=== PATIENT | male | born 1945 | race Caucasian/White ===

== ENCOUNTER 2017-08-09 06:37 | Inpatient (IN) | payer MEDICARE, OTHER ==
[~2017-08-09] VITALS: Ht 195.6 cm; Wt 100.1 kg
[~2017-08-09 06:37] MED LIST: ANTIDEPRESSANT PO
[2017-08-09] MEDS ORDERED: ASPIRIN 81 MG TABLET CHEW PO ONE (07:30)
[2017-08-09 07:36] LABS: BASOPHILS # (AUTO) 0.01 x10^3/uL (0-0.1); BASOPHILS % (AUTO) 0 % (0-1); EOSINOPHILS % (AUTO) 2 % (1-7); LYMPHOCYTES % (AUTO) 13 % (22-44); MD NO; MEAN CORPUSCULAR HEMOGLOBIN 32.1 pg (27.5-34.5); MEAN CORPUSCULAR HGB CONC 33.6 g/dL (33.2-36.2); MEAN CORPUSCULAR VOLUME 95.4 fL (81-97); MONOCYTES # (AUTO) 0.37 x10^3/uL (0.2-0.8); MONOCYTES % (AUTO) 8 % (2-9); NEUTROPHILS # (AUTO) 3.36 x10^3/uL (1.8-6.8); NEUTROPHILS % (AUTO) 76 % (42-75); PLATELET COUNT 246 x10^3/uL (130-400); RED BLOOD COUNT 3.74 x10^6/uL (4.38-5.82); RED CELL DISTRIBUTION WIDTH 13.9 % (9.4-14.8)
[2017-08-09] MEDS ORDERED: ASPIRIN 81 MG TABLET CHEW ONE (07:46)
[2017-08-09 07:49] LABS: ALANINE AMINOTRANSFERASE 32 U/L (12-78); ALBUMIN 3.1 g/dL (3.4-5.0); ANION GAP 7 mmol/L (5-15); CALCIUM 7.9 mg/dL (8.5-10.1); CHLORIDE 108 mmol/L (98-107); CREATININE 0.91 mg/dL (0.7-1.3)
[2017-08-09 07:53] LABS: ALKALINE PHOSPHATASE 124 U/L (45-117); BILIRUBIN,TOTAL 0.4 mg/dL (0.2-1.0); TOTAL PROTEIN 6.7 g/dL (6.4-8.2)
[2017-08-09 07:56] LABS: TROPONIN I 0.133 ng/mL (0.000-0.045)
[2017-08-09] MEDS ORDERED: SODIUM CHLORIDE 0.9% 1,000 ML IV SCH (08:13)
[2017-08-09] MEDS ORDERED: hydrALAzine 20 MG/ML, 1ML IVPush PRN (08:30)
[2017-08-09] MEDS ORDERED: ACETAMINOPHEN 325 MG TABLET PO PRN ×2 (08:30→11:00)
[2017-08-09] MEDS ORDERED: ONDANSETRON 2MG/ML, 2ML IVPush PRN (08:30)
[2017-08-09] MEDS ORDERED: morphine SULFATE 10 MG/ML, 1ML IVPush PRN (08:30)
[2017-08-09] MEDS ORDERED: METOPROLOL TARTRATE 25 MG TABLET PO SCH (08:30)
[2017-08-09] MEDS ORDERED: Enoxaparin 1 mg/kg protocol SQ SCH (08:30)
[2017-08-09] MEDS ORDERED: MIRT15TA6 PO (08:53)
[2017-08-09] MEDS ORDERED: ASPI-515 PO (08:53)
[2017-08-09] MEDS ORDERED: ALPR0.25 PO (08:53)
[2017-08-09] MEDS ORDERED: ESCI20TA10 PO (08:53)
[2017-08-09] MEDS ORDERED: ZOLP-413 PO (08:53)
[2017-08-09] MEDS ORDERED: POLYETHYLENE GLYCOL 17 GM PACKET PO SCH (09:00)
[2017-08-09] MEDS ORDERED: OMNIPAQUE 350 MG/ML, 100ML BOTTLE ONE (10:17)
[2017-08-09] MEDS ORDERED: ENOXAPARIN 40 MG/0.4 ML SQ SCH (11:00)
[2017-08-09] MEDS ORDERED: ZOLPIDEM 5MG TABLET PO PRN (11:00)
[2017-08-09] MEDS ORDERED: FUROSEMIDE 40 MG/4 ML IV ONE (11:00)
[2017-08-09] MEDS ORDERED: DOCUSATE 100 MG CAPSULE PO PRN (11:00)
[2017-08-09 11:43] LABS: TROPONIN I 0.144 ng/mL (0.000-0.045)
[2017-08-09] MEDS ORDERED: FUROSEMIDE 40 MG/4 ML ONE (11:46)
[2017-08-09] MEDS: SODIUM CHLORIDE FLUSH 10ML SYR IVF SCH ×2 (12:01→22:10)
[2017-08-09] MEDS: ENOXAPARIN 100 MG/ML SQ SCH (13:07)
[2017-08-09 14:30] VITALS: BP 97/62
[2017-08-09 16:57] LABS: TROPONIN I 0.165 ng/mL (0.000-0.045)
[2017-08-09] MEDS ORDERED: SIMVASTATIN 40 MG TABLET PO SCH (21:00)
[2017-08-09 21:15] VITALS: BP 127/87
[2017-08-09] MEDS: CITALOPRAM 20 MG TABLET PO SCH (22:10)
[2017-08-10 02:00] VITALS: BP 149/107
[2017-08-10] MEDS: ENOXAPARIN 100 MG/ML SQ SCH ×2 (02:25→18:17)
[2017-08-10] MEDS ORDERED: ASPIRIN 81 MG TABLET EC PO SCH (06:00)
[2017-08-10 06:38] VITALS: BP 136/91
[2017-08-10 08:04] VITALS: BP 149/107
[2017-08-10] MEDS ORDERED: REGADENOSON 0.4 MG/5 ML SYRINGE ONE (08:21)
[2017-08-10] MEDS: SODIUM CHLORIDE FLUSH 10ML SYR IVF SCH ×2 (09:00→20:20)
[2017-08-10] MEDS: LISINOPRIL 5 MG TABLET PO SCH ×2 (11:17→20:21)
[2017-08-10 14:14] VITALS: BP 119/83
[2017-08-10 17:31] LABS: CHOL/HDL RATIO 3.4
[2017-08-10] MEDS: CARVEDILOL 12.5 MG TABLET PO SCH (18:15)
[2017-08-10 20:15] VITALS: BP 104/68
[2017-08-10] MEDS: CITALOPRAM 20 MG TABLET PO SCH (20:20)
[2017-08-10] MEDS: ATORVASTATIN 20 MG TABLET PO SCH (20:21)
[2017-08-11 01:45] VITALS: BP 107/74
[2017-08-11 05:11] VITALS: BP_SYST 109; BP_SYST 113; BP_DIAS 73; BP_DIAS 74
[2017-08-11] MEDS: ENOXAPARIN 100 MG/ML SQ SCH ×2 (05:17→17:53)
[2017-08-11] MEDS: CARVEDILOL 12.5 MG TABLET PO SCH (05:18)
[2017-08-11 07:26] VITALS: BP 105/72
[2017-08-11] MEDS: SODIUM CHLORIDE FLUSH 10ML SYR IVF SCH ×2 (09:04→21:00)
[2017-08-11] MEDS: LISINOPRIL 5 MG TABLET PO SCH (09:04)
[2017-08-11] MEDS: POTASSIUM CHLORIDE 20 MEQ TAB.ER.PRT PO SCH (10:34)
[2017-08-11] MEDS: FUROSEMIDE 20 MG TABLET PO SCH (10:34)
[2017-08-11] MEDS ORDERED: TICAGRELOR 90 MG TABLET ONE (12:25)
[2017-08-11] MEDS ORDERED: FENTANYL PF 100 MCG/2ML ONE (12:25)
[2017-08-11] MEDS ORDERED: MIDAZOLAM 1 MG/ML, 5ML ONE (12:25)
[2017-08-11] MEDS ORDERED: LIDOCAINE 2%, 2ML ONE (12:26)
[2017-08-11] MEDS ORDERED: VERAPAMIL 2.5 MG/ML, 2ML ONE (12:26)
[2017-08-11] MEDS ORDERED: BIVALIRUDIN 250 MG ONE (12:26)
[2017-08-11] MEDS ORDERED: HEPARIN 1,000 UNITS/ML, 10ML ONE (12:26)
[2017-08-11] MEDS: CARVEDILOL 6.25 MG TABLET PO SCH (17:52)
[2017-08-11 19:14] VITALS: BP 100/70
[2017-08-11] MEDS: CITALOPRAM 20 MG TABLET PO SCH (20:59)
[2017-08-11] MEDS: TICAGRELOR 90 MG TABLET PO SCH (20:59)
[2017-08-11] MEDS: ATORVASTATIN 20 MG TABLET PO SCH (20:59)
[2017-08-12 02:52] VITALS: BP_SYST 94; BP_SYST 97; BP_DIAS 63; BP_DIAS 64
[2017-08-12 04:30] VITALS: BP 113/72
[2017-08-12 05:14] LABS: ANION GAP 7 mmol/L (5-15); CHLORIDE 108 mmol/L (98-107)
[2017-08-12 05:15] LABS: CREATININE 0.83 mg/dL (0.7-1.3)
[2017-08-12 05:46] VITALS: BP 112/71
[2017-08-12] MEDS: CARVEDILOL 6.25 MG TABLET PO SCH ×2 (05:50→17:43)
[2017-08-12] MEDS: ENOXAPARIN 100 MG/ML SQ SCH ×2 (05:50→17:43)
[2017-08-12 07:32] VITALS: BP 112/71
[2017-08-12] MEDS: TICAGRELOR 90 MG TABLET PO SCH ×2 (09:53→20:25)
[2017-08-12] MEDS: POTASSIUM CHLORIDE 20 MEQ TAB.ER.PRT PO SCH (09:53)
[2017-08-12] MEDS: FUROSEMIDE 20 MG TABLET PO SCH (09:53)
[2017-08-12] MEDS: ASPIRIN 81 MG TABLET EC PO SCH (09:53)
[2017-08-12] MEDS: LISINOPRIL 5 MG TABLET PO SCH (09:54)
[2017-08-12] MEDS: SODIUM CHLORIDE FLUSH 10ML SYR IVF SCH ×2 (09:54→21:00)
[2017-08-12] MEDS ORDERED: FUROSEMIDE 40 MG/4 ML IV ONE (10:00)
[2017-08-12 14:30] VITALS: BP 107/59
[2017-08-12 19:13] VITALS: BP_SYST 95; BP_SYST 96; BP_DIAS 60; BP_DIAS 61
[2017-08-12] MEDS: ATORVASTATIN 20 MG TABLET PO SCH (20:25)
[2017-08-12] MEDS: CITALOPRAM 20 MG TABLET PO SCH (20:25)
[2017-08-13 01:13] VITALS: BP 121/73
[2017-08-13 05:34] LABS: BASOPHILS # (AUTO) 0.01 x10^3/uL (0-0.1); BASOPHILS % (AUTO) 0 % (0-1); EOSINOPHILS # (AUTO) 0.09 x10^3/uL (0-0.4); EOSINOPHILS % (AUTO) 2 % (1-7); LYMPHOCYTES # (AUTO) 0.73 x10^3/uL (1-3.4); LYMPHOCYTES % (AUTO) 14 % (22-44); MD NO; MEAN CORPUSCULAR HEMOGLOBIN 32.3 pg (27.5-34.5); MEAN CORPUSCULAR HGB CONC 33.6 g/dL (33.2-36.2); MEAN CORPUSCULAR VOLUME 96.1 fL (81-97); MEAN PLATELET VOLUME 7.5 fL (7.4-10.4); MONOCYTES % (AUTO) 10 % (2-9); NEUTROPHILS % (AUTO) 74 % (42-75); PLATELET COUNT 240 x10^3/uL (130-400); RED BLOOD COUNT 3.76 x10^6/uL (4.38-5.82); RED CELL DISTRIBUTION WIDTH 13.6 % (9.4-14.8)
[2017-08-13 05:50] LABS: CHLORIDE 107 mmol/L (98-107)
[2017-08-13] MEDS: ENOXAPARIN 100 MG/ML SQ SCH (06:00)
[2017-08-13 06:01] LABS: ALANINE AMINOTRANSFERASE 41 U/L (12-78); ALBUMIN 3.2 g/dL (3.4-5.0); ALKALINE PHOSPHATASE 122 U/L (45-117); ANION GAP 8 mmol/L (5-15); BILIRUBIN,TOTAL 0.7 mg/dL (0.2-1.0); CREATININE 0.91 mg/dL (0.7-1.3); TOTAL PROTEIN 6.9 g/dL (6.4-8.2)
[2017-08-13] MEDS: CARVEDILOL 6.25 MG TABLET PO SCH (06:17)
[2017-08-13 08:30] VITALS: BP_SYST 112; BP_SYST 156; BP_DIAS 70; BP_DIAS 83
[2017-08-13] MEDS: ASPIRIN 81 MG TABLET EC PO SCH (08:35)
[2017-08-13] MEDS: FUROSEMIDE 20 MG TABLET PO SCH (08:35)
[2017-08-13] MEDS: TICAGRELOR 90 MG TABLET PO SCH (08:35)
[2017-08-13] MEDS: POTASSIUM CHLORIDE 20 MEQ TAB.ER.PRT PO SCH (08:36)
[2017-08-13] MEDS: LISINOPRIL 5 MG TABLET PO SCH (08:36)
[2017-08-13] MEDS: SODIUM CHLORIDE FLUSH 10ML SYR IVF SCH (08:37)
[2017-08-13] MEDS ORDERED: FUROSEMIDE 40 MG/4 ML IV ONE (09:30)
[2017-08-13] MEDS ORDERED: CARV6.2512 PO (12:05)
[2017-08-13] MEDS ORDERED: LISI5TAB7 PO (12:05)
[2017-08-13] MEDS ORDERED: ATOR20TA9 PO (12:05)
[2017-08-13] MEDS ORDERED: FURO20TA3 PO (12:05)
[2017-08-13] MEDS ORDERED: POTA20TA6 PO (12:05)
[2017-08-13] MEDS ORDERED: TICA90TA PO (12:05)
== END 2017-08-13 13:50 | disposition home health service (06) | DRG 246 ==
LOC: ED 07:34 → EDIP 08:13 → 5SO 13:32 → DCLOUNGE 08-13 12:49
PROVIDERS: ADMIT Hospitalist; ATTEND Hospitalist
PROC: 027135Z Dilation of Coronary Artery, Two Arteries with Two Drug-eluting Intraluminal Devices, Percutaneous Approach (ICD-10-PCS; principal; 2017-08-11)
PROC: 4A023N7 Measurement of Cardiac Sampling and Pressure, Left Heart, Percutaneous Approach (ICD-10-PCS; 2017-08-11)
PROC: B2151ZZ Fluoroscopy of Left Heart using Low Osmolar Contrast (ICD-10-PCS; 2017-08-11)
PROC: B2111ZZ Fluoroscopy of Multiple Coronary Arteries using Low Osmolar Contrast (ICD-10-PCS; 2017-08-11)
DX: I25.10 Atherosclerotic heart disease of native coronary artery without angina pectoris (principal); I50.21 Acute systolic (congestive) heart failure; I42.0 Dilated cardiomyopathy; I34.0 Nonrheumatic mitral (valve) insufficiency; I11.0 Hypertensive heart disease with heart failure; E78.5 Hyperlipidemia, unspecified; Z77.098 Contact with and (suspected) exposure to other hazardous, chiefly nonmedicinal, chemicals; F32.9 Major depressive disorder, single episode, unspecified; F41.9 Anxiety disorder, unspecified; G47.00 Insomnia, unspecified; Z65.5 Exposure to disaster, war and other hostilities; Z79.82 Long term (current) use of aspirin; Z82.3 Family history of stroke; Z82.49 Family history of ischemic heart disease and other diseases of the circulatory system; Z85.46 Personal history of malignant neoplasm of prostate; Z87.891 Personal history of nicotine dependence; Z90.49 Acquired absence of other specified parts of digestive tract; Z92.3 Personal history of irradiation; Z95.5 Presence of coronary angioplasty implant and graft; Z90.89 Acquired absence of other organs
CPT/HCPCS: 36415; 71045; 71046; 71275; 78452; 80048; 80053; 80061; 82962; 83880; 84484; 85025; 85379; 93005; 93017; 93458; 96374; 99156; 99157; C1769; C1894; C8929; C9600; J0583; J1644; J1650; J1940; J2250; J2785; J3010; J3490; Q9967; A9502; C1874; C1887; C9898

== ENCOUNTER → 2017-12-27 | Outpatient (CLI) | payer MEDICARE, OTHER ==
[~2017-12-27] MED LIST changes: +ALPR0.25 PO; +ASPI-515 PO; +ATOR20TA9 PO; +CARV6.2512 PO; +ESCI20TA10 PO; +FURO20TA3 PO; +LISI5TAB7 PO; +MIRT15TA6 PO; +POTA20TA6 PO; +TICA90TA PO; +ZOLP-413 PO
== END | disposition home or self-care (01) ==
LOC: CFH 09:57
PROVIDERS: ATTEND Physician Assistant
DX: I34.0 Nonrheumatic mitral (valve) insufficiency (principal); I35.8 Other nonrheumatic aortic valve disorders; I25.10 Atherosclerotic heart disease of native coronary artery without angina pectoris; I10 Essential (primary) hypertension; E78.5 Hyperlipidemia, unspecified; Z85.46 Personal history of malignant neoplasm of prostate; Z87.891 Personal history of nicotine dependence
CPT/HCPCS: 0399T; 93306

== ENCOUNTER 2019-04-19 08:43 | Outpatient (CLI) | payer MEDICARE, OTHER ==
[~2019-04-19 08:43] MED LIST changes: +ATOR20TA37 PO; -ATOR20TA9 PO; -MIRT15TA6 PO; +MIRT15TA94 PO
== END 2019-04-19 23:59 | disposition home or self-care (01) ==
LOC: CFH 08:43
PROVIDERS: ATTEND Internal Medicine Cardiovascular Disease
DX: I08.3 Combined rheumatic disorders of mitral, aortic and tricuspid valves (principal); I25.10 Atherosclerotic heart disease of native coronary artery without angina pectoris; I34.0 Nonrheumatic mitral (valve) insufficiency
CPT/HCPCS: 93306

== ENCOUNTER → 2020-01-10 | Outpatient (CLI) | payer MEDICARE, OTHER ==
[~2020-01-10] MED LIST changes: +REGADENOSON 0.4 MG/5 ML SYRINGE ONE
== END | disposition home or self-care (01) ==
LOC: CFH 12:26
PROVIDERS: ATTEND Internal Medicine Cardiovascular Disease
DX: I48.0 Paroxysmal atrial fibrillation (principal); I25.10 Atherosclerotic heart disease of native coronary artery without angina pectoris
CPT/HCPCS: 78452; 93017; A9502; J2785